=== PATIENT | male | born 1950 ===

== ENCOUNTER 2024-09-26 08:13 | Day surgery (SDC) | payer OTHER ==
[2024-09-22 11:39] VITALS: BP 156/79
[~2024-09-26] VITALS: Ht 170.2 cm; Wt 82.6 kg
[~2024-09-26 08:13] MED LIST: AMLODIPINE 2.5 MG; ATORVASTATIN CA20 MG; LOSARTAN POTASS50 MG; [UNRECOGNIZED DRUG - OTHER]
[2024-09-26] MEDS ORDERED: GENTAMICIN SULFATE 40 MG/ML VIAL ONE (11:41)
[2024-09-26] MEDS ORDERED: CHLORHEXIDINE GLUCONATE 120 ML BOTTLE TOP ONE (12:41)
[2024-09-26] MEDS ORDERED: PHENAZOPYRIDINE HCL 100 MG TABLET PO ONE ×2 (15:15→15:43)
== END 2024-09-26 17:50 | disposition home or self-care (01) ==
LOC: CIR.AMB 08:13
PROVIDERS: ATTEND Urology
DX: C67.9 Malignant neoplasm of bladder, unspecified (principal)